=== PATIENT | male | born 1970 | race Caucasian/White ===

== ENCOUNTER 2016-10-28 21:08 | Emergency (ER) | payer BC ==
[~2016-10-28] VITALS: Ht 175.3 cm; Wt 83.9 kg
[2016-10-28] MEDS ORDERED: DILTIAZEM HCL 25 MG IV IV ONE ×2 (21:30→21:45)
[2016-10-28] MEDS ORDERED: IV NORMAL SALINE 1000 ML BAG IV ONE (21:30)
[2016-10-28] MEDS ORDERED: ASPIRIN 325 MG TABLET PO ONE (21:30)
[2016-10-28] MEDS ORDERED: DILTIAZEM HCL 50 MG IV ONE (21:34)
[2016-10-28] MEDS ORDERED: ASPIRIN 325 MG TABLET ONE (21:41)
--- NOTE | 2016-10-28 21:41 | NUR ---
[facility], Transfer center contacted @ [phone]. Spoke to Aldo. All paperwork sent via fax as requested by [facility].
[2016-10-28] MEDS ORDERED: [UNRECOGNIZED DRUG - OTHER] (21:44)
[2016-10-28] MEDS ORDERED: RIVAROXABAN (21:44)
[2016-10-28 21:45] LABS: BASOPHILS # (AUTO) 0.1 K/uL (0.0-8.0); BASOPHILS % (AUTO) 0.5 % (0.0-2.0); EOSINOPHILS # (AUTO) 0.1 K/uL (0.0-0.7); EOSINOPHILS % (AUTO) 1.1 % (0.0-7.0); HEMATOCRIT 45.5 % (40-50); HEMOGLOBIN 15.6 G/DL (14.0-18.0); LYMPHOCYTES # (AUTO) 2.4 K/UL (0.8-4.8); MEAN CORPUSCULAR HEMOGLOBIN 31.3 UUG (27.0-31.0); MEAN CORPUSCULAR HGB CONC 34 g/dL (32.0-37.0); MEAN CORPUSCULAR VOLUME 91.2 FL (82.0-92.0); MONOCYTES # (AUTO) 0.8 K/UL (0.1-1.30); NEUTROPHILS # (AUTO) 9.4 K/UL (1.8-8.9); NEUTROPHILS % (AUTO) 73.4 % (38.5-71.5); PLATELET COUNT (AUTO) 264 K/UL (150-450); RED BLOOD CELL COUNT(AUTO) 4.99 MIL/UL (4.7-6.1); WHITE BLOOD COUNT (AUTO) 12.8 K/UL (4.0-11.2)
[2016-10-28] MEDS ORDERED: NITROGLYCERIN 0.4 MG/TAB BOTTLE SL ONE ×2 (21:45→21:54)
[2016-10-28] MEDS ORDERED: METOPROLOL TARTRATE 5 MG/5 ML VIAL IVP ONE (21:45)
[2016-10-28 21:46] LABS: CREATININE 1.1 mg/dL (0.6-1.3); POTASSIUM 3.7 mmol/L (3.5-5.1)
[2016-10-28 21:52] VITALS: BP 128/81
--- NOTE | 2016-10-28 21:55 | NUR ---
ER MD on phone with [facility] [employer] for possible transfer to higher level of care
[2016-10-28 21:58] LABS: BILIRUBIN,DIRECT 0.2 mg/dL (0.0-0.2); BILIRUBIN,TOTAL 0.7 mg/dL (0.2-1.0); TOTAL PROTEIN, SERUM 8.4 g/dL (6.4-8.2)
[2016-10-28] MEDS ORDERED: METOCLOPRAMIDE HCL 10 MG/2 ML VIAL ONE (21:59)
[2016-10-28] MEDS ORDERED: HEPARIN SODIUM,PORCINE 5,000 UNITS/ML VIAL IV ONE (22:00)
[2016-10-28] MEDS ORDERED: CLOPIDOGREL 75 MG TABLET PO ONE (22:00)
[2016-10-28 22:13] LABS: BAND % (MANUAL) 10 % (0-10); LYMPHOCYTES % (MANUAL) 20 % (20-40); MONOCYTES % (MANUAL) 5 % (2-10); NEUTROPHILS % (MANUAL) 65 % (42-75)
--- NOTE | 2016-10-28 22:15 | NUR ---
Patient picked up by [facility] [employer] , [address]. Patient to be taken to [facility] ER. Patient is accepted by grader tender Dr. Sifuentes. Chart given to paramedics to deliver to [facility] staff. All patient needs attended and met prior to transfer. All belongings taken with patient.
[2016-10-28] MEDS ORDERED: CLOPIDOGREL 75 MG TABLET ONE (22:17)
[2016-10-28] MEDS ORDERED: HEPARIN SODIUM,PORCINE 5,000 UNITS/ML VIAL ONE (22:17)
== END 2016-10-28 22:15 | disposition short-term general hospital (02) ==
LOC: ER 21:09
DX: I21.19 ST elevation (STEMI) myocardial infarction involving other coronary artery of inferior wall (principal); I48.0 Paroxysmal atrial fibrillation; I48.91 Unspecified atrial fibrillation; Z79.01 Long term (current) use of anticoagulants
CPT/HCPCS: 36415; 70030-TC; 71010; 84443; 85025; 85730; 93005; A4663; J1644; J2765; J3490; J7030